=== PATIENT | female | born 1995 | race Caucasian/White ===

== ENCOUNTER 2017-03-14 10:00 | Emergency (ER) | payer MEDICAID ==
[~2017-03-14] VITALS: Ht 172.7 cm; Wt 80.0 kg
[~2017-03-14 10:00] MED LIST: TRAZ1TAB14 PO
[2017-03-14 10:01] VITALS: BP 116/69; PULSE 87; RESP 16; TEMP 98.5; O2SAT 98
[2017-03-14] MEDS ORDERED: CLIN300C5 PO (10:31)
--- NOTE | 2017-03-14 10:31 | PD ---
HPI Chief Complaint: Oral / Dental Pain or Problem Time Seen by Provider: 10:11 Travel History International Travel<30 days: No Contact w/Intl Traveler<30days: No Traveled to known affect area: No History of Present Illness HPI This is a 21-year-old female here with left upper dental pain 3 days. Patient reports she has a cracked tooth in the region of the pain. She noticed gum swelling several days ago. No fever or chills. Severity is moderate. No aggravating or alleviating factors. PFSH Past Medical History Medical History: Denies Significant Hx Medical other: Yes (AUTISM ) ?: Not Past Surgical History Surgical History: No Previous Surgery Social History Alcohol Use: No Tobacco Use: No Substance Use: No Allergies-Medications (Allergen,Severity, Reaction): Coded Allergies: penicillin G (Unverified Allergy, Severe, 11/06/16) Reported Meds & Prescriptions Reported Meds & Active Scripts Active Trazodone (Trazodone HCl) 150 Mg Tablet 150 Mg PO 1-2 TAB Q HS Review of Systems Except as stated in HPI: all other systems reviewed are Neg General / Constitutional: No: Fever Eyes: No: Visual changes HENT: No: Headaches Cardiovascular: No: Chest Pain or Discomfort Respiratory: No: Shortness of Breath Gastrointestinal: No: Abdominal Pain Physical Exam Narrative GENERAL: Alert and well-appearing 21-year-old female SKIN: Warm and dry. HEAD: Normocephalic. EYES: No injection or drainage. Mouth: Decayed and fractured tooth left upper molar with surrounding gum erythema and tenderness. No fluctuance. NECK: Supple, trachea midline. Data Data Last Documented VS Vital Signs Date Time Temp Pulse Resp B/P (MAP) Pulse Ox O2 Delivery O2 Flow Rate FiO2 03/14/17 10:01 98.5 87 16 116/69 (85) 98 Room Air MDM Medical Decision Making Medical Screen Exam Complete: Yes Emergency Medical Condition: Yes Differential Diagnosis Dental abscess, dental fracture, dentalgia Narrative Course 20-year-old female here with left upper dental pain and comes swelling surrounding a cracked tooth. She is nontoxic-appearing. She appears to have a localized infection surrounding left upper molar. She will be prescribed clindamycin and instructed to follow up with a dentist Diagnosis Primary Impression: Dental infection Referrals: Dentist Additional Instructions: Tylenol or ibuprofen as needed for pain. Antibiotics as prescribed. Follow-up with the dentist. Scripts Clindamycin (Clindamycin) 300 Mg Cap 300 MG PO TID for Infection for 7 Days, CAP 0 Refills Prov: Jyoti England 03/14/17 Disposition: 01 DISCHARGE HOME Condition: Stable Jyoti England Mar 14, 2017 10:31
== END 2017-03-14 10:47 | disposition home or self-care (01) ==
LOC: NEPK 10:00
DX: K04.7 Periapical abscess without sinus (principal)
CPT/HCPCS: 99283